=== PATIENT | male | born 1975 | race Caucasian/White ===

== ENCOUNTER 2017-02-16 11:44 | Emergency (ER) | payer OTHER ==
[2017-02-16 12:02] VITALS: BMI 26.6
[2017-02-16] MEDS ORDERED: Sodium Chloride 0.9% 1,000 ML IV STA (12:13)
[2017-02-16] MEDS ORDERED: DiphenhydrAMINE 50 mg/ml Inj IVP STA (12:13)
--- NOTE | 2017-02-16 12:17 | ED PDOC ---
Arrival/HPI - General Chief Complaint: Headache Time Seen by Provider: 02/16/17 12:02 Historian: Patient, Family - History of Present Illness Narrative History of Present Illness (Text): 02/16/17 12:14 41 year old male who denies past medical history presents to the emergency department with intermittent headaches and diarrhea for the" past few weeks". Denies nausea/vomiting. pt is poor historian, info obtained via son as transator bedside. No other complaints at this time. Time/Duration: > week Symptom Onset: Gradual Symptom Course: Intermittent Modifying Factors (Text): None Associated Symptoms (Text): None Past Medical History - Provider Review Nursing Documentation Reviewed: Yes - Psychiatric Hx Substance Use: No Family/Social History - Physician Review Nursing Documentation Reviewed: Yes Family/Social History: Unknown Family HX Smoking Status: Heavy Smoker > 10 Cigarettes Daily Hx Alcohol Use: No Hx Substance Use: No Allergies/Home Meds Allergies/Adverse Reactions: Allergies No Known Allergies Allergy (Verified 02/16/17 12:01) Review of Systems - Physician Review All systems were reviewed & negative as marked: Yes - Review of Systems Cardiovascular: absent: Chest Pain Gastrointestinal: Diarrhea. absent: Nausea, Vomiting Neurological: Headache Physical Exam Vital Signs Reviewed: Yes Vital Signs Temp Pulse Resp BP Pulse Ox 02/16/17 12:02 98 F 78 16 119/72 96 Temperature: Afebrile Blood Pressure: Normal Pulse: Regular Respiratory Rate: Normal Appearance: Positive for: Well-Appearing, Non-Toxic, Comfortable Pain Distress: None Mental Status: Positive for: Alert and Oriented X 3 - Systems Exam Head: Present: Atraumatic, Normocephalic Pupils: Present: PERRL Extroacular Muscles: Present: EOMI Conjunctiva: Present: Normal Mouth: Present: Moist Mucous Membranes Neck: Present: Normal Range of Motion Respiratory/Chest: Present: Clear to Auscultation, Good Air Exchange. No: Respiratory Distress, Accessory Muscle Use Cardiovascular: Present: Regular Rate and Rhythm, Normal S1, S2. No: Murmurs Abdomen: Present: Tenderness (Mild nonfocal tenderness), Normal Bowel Sounds. No: Distention, Peritoneal Signs Back: Present: Normal Inspection Upper Extremity: Present: Normal Inspection. No: Cyanosis, Edema Lower Extremity: Present: Normal Inspection. No: Edema Neurological: Present: GCS=15, CN II-XII Intact, Speech Normal, Motor Func Grossly Intact, Normal Sensory Function, Normal Cerebellar Funct, Norm Deep Tendon Reflexes, Gait Normal Skin: Present: Warm, Dry, Normal Color. No: Rashes Psychiatric: Present: Alert, Oriented x 3, Normal Insight, Normal Concentration Medical Decision Making ED Course and Treatment: Impression: 41 year old male who denies past medical history presents to the emergency department with intermittent headaches and diarrhea for " a while" Differential Diagnosis include but are not limited to: Headache, nonspecific abdominal pain Plan: -- Benadryl, Reglan -- Labs -- Reassess and disposition Progress Notes: PROCEDURE: CT HEAD WITHOUT CONTRAST. Project Superintendent : Rogers Jiméenz MD IMPRESSION: No acute finding PROCEDURE: CT Abdomen/Pelvis Project Superintendent : Rogers Jiménez MD IMPRESSION: No acute findings 02/16/17 14:31 inital imaging neg, but pt reports persistent symptoms. ct imaging added. both neg. pt now reports feeling improved. abd soft no ttp. advise outpt f/u and return precautions 02/16/17 14:41 - Lab Interpretations Lab Results: 02/16/17 13:10 02/16/17 13:10 Lab Results 02/16/17 13:10: WBC 4.7 D, RBC 4.88, Hgb 15.6, Hct 42.5, MCV 87.1, MCH 32.0, MCHC 36.7, RDW 12.7, Plt Count 247, MPV 10.6, Gran % 39.1 L, Lymph % (Auto) 47.8 H, Morrill % (Auto) 10.2 H, Eos % (Auto) 2.3, Baso % (Auto) 0.6, Gran # 1.83, Lymph # 2.2, Morrill # 0.5, Eos # 0.1, Baso # 0.03, PT 11.2, INR 1.04, APTT 25.5, Sodium 139, Potassium 3.8, Chloride 100, Carbon Dioxide 31, Anion Gap 12, BUN 19 , Creatinine 0.7, Est GFR ( Amer) > 60, Est GFR (Non-Af Amer) > 60, Random Glucose 93, Calcium 9.6, Total Bilirubin 0.5, AST 45, ALT 76 H, Alkaline Phosphatase 49, Total Protein 7.8, Albumin 4.3, Globulin 3.5, Albumin/Globulin Ratio 1.2, Lipase 131 - RAD Interpretation Radiology Orders: 02/16/17 13:47 ABD & PELVIS IV CONTRAST ONLY [CT] Stat HEAD W/O CONTRAST [CT] Stat - Medication Orders Current Medication Orders: Discontinued Medications Diphenhydramine HCl (Benadryl) 25 mg IVP STAT STA Stop: 02/16/17 12:14 Last Admin: 02/16/17 13:00 Dose: 25 MG IVP Administration Document 02/16/17 13:00 BELLA (Rec: 02/16/17 13:08 [id number]) Charges for Administration # of IVP Administrations 1 Sodium Chloride (Sodium Chloride 0.9%) 1,000 mls @ 1,000 mls/hr IV .Q1H STA Stop: 02/16/17 13:12 Last Admin: 02/16/17 13:06 Dose: 1,000 MLS/HR eMAR Start Stop Document 02/16/17 13:06 BELLA (Rec: 02/16/17 13:06 [id number]) Intravenous Solution Start Date 02/16/17 Start Time 13:00 End Date 02/16/17 End time 14:00 Total Infusion Time 60 Iohexol (Omnipaque 350 100 Ml) Confirm Administered Dose 350 mg .ROUTE .STK-MED ONE Stop: 02/16/17 13:54 Ketorolac Tromethamine (Toradol) 30 mg IVP STAT STA Stop: 02/16/17 14:28 Metoclopramide HCl (Reglan) 10 mg IVP STAT STA Stop: 02/16/17 12:14 Last Admin: 02/16/17 13:07 Dose: 10 MG IVP Administration Document 02/16/17 13:07 BLELA (Rec: 02/16/17 13:07 [id number]) Charges for Administration # of IVP Administrations 1 - Scribe Statement The provider has reviewed the documentation as recorded by the Yolanda Randall Provider Scribe Attestation: All medical record entries made by the Scribe were at my direction and personally dictated by me. I have reviewed the chart and agree that the record accurately reflects my personal performance of the history, physical exam, medical decision making, and the department course for this patient. I have also personally directed, reviewed, and agree with the discharge instructions and disposition. Disposition/Present on Arrival - Present on Arrival Any Indicators Present on Arrival: No History of DVT/PE: No History of Uncontrolled Diabetes: No Urinary Catheter: No History of Decub. Ulcer: No History Surgical Site Infection Following: None - Disposition Have Diagnosis and Disposition been Completed?: Yes Diagnosis: Headache, Abdominal pain Disposition: HOME/ ROUTINE Disposition Time: 14:33 Patient Problems: Current Active Problems Problem Status Diagnosed Abdominal pain Acute Headache Acute Condition: STABLE Discharge Instructions (ExitCare): Acute Abdominal Pain (ED), Acute Headache ( ED) Additional Instructions: please follow up with clinic and specialists. return to er with worsening symptoms or concerns. Prescriptions: Acetaminophen/Butalbital/Caf [Fioricet] 1 tab PO Q8 PRN #20 tab PRN Reason: Headache Referrals: PCP,NO [Primary Care Provider] - Follow up with primary [facility] at [facility] [place] [Outside] - Follow up with primary [facility] [Outside] - Follow up with primary Jonathan Hopson MD [Staff Provider] - Follow up with primary Be Frey MD [Staff Provider] - Follow up with primary
[2017-02-16 13:28] LABS: ADD MANUAL DIFF? NO
[2017-02-16 13:33] LABS: BASO # 0.03 K/mm3 (0.0-2.0); BASO % 0.6 % (0.0-3.0); EOS # 0.1 (0.0-0.7); EOS % 2.3 % (1.5-5.0); GRAN # 1.83 (1.4-6.5); GRAN % 39.1 % (50.0-68.0); HEMATOCRIT 42.5 % (42.0-52.0); LYMPH # 2.2 (1.2-3.4); LYMPH % 47.8 % (22.0-35.0); MEAN CELL VOLUME 87.1 fL (80.0-105.0); MEAN CORPUSCULAR HGB CONC 36.7 g/dl (31.0-37.0); MEAN PLATELET VOLUME 10.6 fl (7.0-11.0); MONO # 0.5 (0.1-0.6); MONO % 10.2 % (1.0-6.0); PLATELET COUNT 247 10^3/uL (120.0-450.0); RED CELL DISTRIBUTION WIDTH 12.7 % (11.5-14.5); WHITE BLOOD COUNT 4.7 10^3/ul (4.5-11.0)
[2017-02-16 13:43] LABS: ALB/GLOB RATIO 1.2 (1.1-1.8); ALKALINE PHOSPHATASE 49 U/L (38-133); ALT/SGPT 76 U/L (7-56); AST/SGOT 45 U/L (15-59); BILIRUBIN,TOTAL 0.5 mg/dL (0.2-1.3); BLOOD UREA NITROGEN 19 mg/dL (7-21); CALCIUM 9.6 mg/dL (8.4-10.5); CARBON DIOXIDE 31 mmol/L (21-33); CHLORIDE 100 mmol/L (98-107); GFR AFRICAN-AMERICAN > 60; GLUCOSE,RANDOM 93 mg/dL (70-110); INR 1.04 (0.93-1.08); LIPASE 131 U/L (23-300); PARTIAL THROMBOPLASTIN TIME 25.5 Seconds (23.7-30.8); POTASSIUM 3.8 mmol/L (3.6-5.0); SODIUM 139 mmol/L (132-148); TOTAL PROTEIN 7.8 g/dL (5.8-8.3)
[2017-02-16] MEDS ORDERED: Iohexol 350 MG/100 ML VIAL ONE (13:53)
--- NOTE | 2017-02-16 14:26 | CT ---
PROCEDURE: CT HEAD WITHOUT CONTRAST. HISTORY: pina COMPARISON: None available. TECHNIQUE: Axial computed tomography images were obtained through the head/brain without intravenous contrast. Radiation dose: Total exam DLP = 722 mGy-cm. This CT exam was performed using one or more of the following dose reduction techniques: Automated exposure control, adjustment of the mA and/or kV according to patient size, and/or use of iterative reconstruction technique. FINDINGS: HEMORRHAGE: No intracranial hemorrhage. BRAIN: No mass effect or edema. No atrophy or chronic microvascular ischemic changes. VENTRICLES: Unremarkable. No hydrocephalus. CALVARIUM: Unremarkable. PARANASAL SINUSES: Unremarkable as visualized. No significant inflammatory changes. MASTOID AIR CELLS: Unremarkable as visualized. No inflammatory changes. OTHER FINDINGS: None. IMPRESSION: No acute finding
--- NOTE | 2017-02-16 14:31 | CT ---
PROCEDURE: CT Abdomen and Pelvis with contrast HISTORY: abd pain and diarrhea COMPARISON: None. TECHNIQUE: Contrast dose: 100 cc of Omni 350 Radiation dose: Total exam DLP = 476 mGy-cm. This CT exam was performed using one or more of the following dose reduction techniques: Automated exposure control, adjustment of the mA and/or kV according to patient size, and/or use of iterative reconstruction technique. FINDINGS: LOWER THORAX: Unremarkable. LIVER: Unremarkable. No gross lesion or ductal dilatation. GALLBLADDER AND BILE DUCTS: Unremarkable. PANCREAS: Unremarkable. No gross lesion or ductal dilatation. SPLEEN: Unremarkable. ADRENALS: Unremarkable. No mass. KIDNEYS AND URETERS: Unremarkable. No hydronephrosis. No solid mass. VASCULATURE: Unremarkable. No aortic aneurysm. BOWEL: Unremarkable. No obstruction. No gross mural thickening. APPENDIX: Normal appendix. PERITONEUM: Unremarkable. No free fluid. No free air. LYMPH NODES: Unremarkable. No enlarged lymph nodes. BLADDER: Unremarkable. REPRODUCTIVE: Unremarkable. BONES: No acute fracture. OTHER FINDINGS: None. IMPRESSION: No acute findings
[2017-02-16 15:01] VITALS: BP 130/79; PULSE 97; RESP 18; TEMP 97.7; O2SAT 98
== END 2017-02-16 15:00 | disposition home or self-care (01) ==
LOC: ED 11:44
DX: R51 Headache (principal); R10.9 Unspecified abdominal pain
CPT/HCPCS: 70450; 74177; 80053; 83690; 85025; 85610; 85730; 96361; 96374; 96375; 99285; J1200; J1885; J2765; J7040; Q9967

== ENCOUNTER 2017-04-11 17:22 | Emergency (ER) | payer OTHER ==
[2017-04-11 17:23] VITALS: BMI 26.6
[2017-04-11 17:37] VITALS: BP 120/67; PULSE 70; TEMP 98.3
--- NOTE | 2017-04-11 17:43 | ED PDOC ---
Arrival/HPI - General Chief Complaint: Lower Extremity Problem/Injury Time Seen by Provider: 04/11/17 17:32 Historian: Patient - History of Present Illness Narrative History of Present Illness (Text): 04/11/17 17:40 41 y/o male, no significant pmh, nkda, c/o rt. foot heel pain x 2 months with no fall or trauma. Aching pain, admits walking and standing a lot, no numbness or tingling, no palpitation, no chest pain or shortness of breath, no other medical or psychological complaints. Past Medical History - Provider Review Nursing Documentation Reviewed: Yes - Psychiatric Hx Psychophysiologic Disorder: No Hx Substance Use: No Family/Social History - Physician Review Nursing Documentation Reviewed: Yes Family/Social History: Unknown Family HX Smoking Status: Heavy Smoker > 10 Cigarettes Daily Hx Alcohol Use: No Hx Substance Use: No Allergies/Home Meds Allergies/Adverse Reactions: Allergies No Known Allergies Allergy (Verified 04/11/17 17:32) Review of Systems - Review of Systems Constitutional: absent: Fatigue, Fevers Eyes: absent: Vision Changes ENT: absent: Hearing Changes Respiratory: absent: SOB, Cough Cardiovascular: absent: Chest Pain Gastrointestinal: absent: Abdominal Pain, Nausea, Vomiting Musculoskeletal: Arthralgias. absent: Back Pain, Neck Pain, Joint Swelling Skin: absent: Rash, Pruritis, Skin Lesions Neurological: absent: Headache, Dizziness, Focal Weakness Psychiatric: absent: Anxiety, Depression, Suicidal Ideation Physical Exam Vital Signs Reviewed: Yes Vital Signs Temp Pulse Resp BP Pulse Ox 04/11/17 18:24 19 99 04/11/17 17:49 98.3 F 70 16 100 04/11/17 17:33 98.3 F 70 16 120/67 99 Temperature: Afebrile Blood Pressure: Normal Pulse: Regular Respiratory Rate: Normal Appearance: Positive for: Well-Appearing, Non-Toxic Pain Distress: Moderate Mental Status: Positive for: Alert and Oriented X 3 - Systems Exam Head: Present: Atraumatic, Normocephalic Pupils: Present: PERRL Extroacular Muscles: Present: EOMI Conjunctiva: Present: Normal Mouth: Present: Moist Mucous Membranes Neck: Present: Normal Range of Motion Respiratory/Chest: Present: Clear to Auscultation, Good Air Exchange. No: Respiratory Distress, Accessory Muscle Use Cardiovascular: Present: Regular Rate and Rhythm, Normal S1, S2. No: Murmurs Abdomen: Present: Normal Bowel Sounds. No: Tenderness, Distention, Peritoneal Signs Back: Present: Normal Inspection Upper Extremity: Present: Normal Inspection. No: Cyanosis, Edema Lower Extremity: Present: Normal Inspection, NORMAL PULSES, Normal ROM, Neurovascularly Intact, Other (Rt. foot: +ttp on the calcaneal region with no erythematous or the wound, no cellulitis or streaking, no ulcers, FROM without limitations, sensation intact, motor 5/5, +Radial pulse, capillary refill< 2 seconds, neurovascular intact. ). No: Edema, CALF TENDERNESS, Flores's Sign, Deformity Neurological: Present: GCS=15, CN II-XII Intact, Speech Normal Skin: Present: Warm, Dry, Normal Color. No: Rashes Psychiatric: Present: Alert, Oriented x 3, Normal Insight, Normal Concentration Medical Decision Making ED Course and Treatment: 04/11/17 17:43 -toradol IM, hailey wrap, crutches, xray -Discharge home with naproxen, hailey wrap, crutches, avoid excessive walking or standing, avoid wearing flip flops, follow up with your own pmd and sales service professional within 2 days, return to the ER for any new or worsening signs or symptoms. 04/11/17 17:59 -Rt. foot xray show no fracture or dislocation - RAD Interpretation Radiology Orders: 04/11/17 17:39 FOOT RIGHT 3 VIEWS ROUTINE [RAD] Stat no fracture, no significant acute findings. Acupressurist: Radiologist - Medication Orders Current Medication Orders: Discontinued Medications Ketorolac Tromethamine (Toradol) 60 mg IM STAT STA Stop: 04/11/17 17:40 Last Admin: 04/11/17 18:04 Dose: 60 mg - PA / TILE DECORATOR / Resident Statement MD/DO has reviewed & agrees with the documentation as recorded. Disposition/Present on Arrival - Present on Arrival Any Indicators Present on Arrival: No History of DVT/PE: No History of Uncontrolled Diabetes: No Urinary Catheter: No History of Decub. Ulcer: No History Surgical Site Infection Following: None - Disposition Have Diagnosis and Disposition been Completed?: Yes Diagnosis: Plantar fasciitis of right foot, Calcaneal spur, right Disposition: HOME/ ROUTINE Disposition Time: 17:44 Patient Plan: Discharge Condition: GOOD Additional Instructions: Discharge home with naproxen, hailey wrap, crutches, avoid excessive walking or standing, avoid wearing flip flops, follow up with your own pmd and sales service professional within 2 days, return to the ER for any new or worsening signs or symptoms. Prescriptions: Naproxen [Naprosyn] 500 mg PO BID PRN #30 tab PRN Reason: Other Referrals: [facility] at [facility] [place] [Outside] - Follow up with primary Sanford Crabtree DPM [Staff Provider] - Follow up with primary Forms: WORK NOTE
[2017-04-11 18:25] VITALS: RESP 19; O2SAT 99
--- NOTE | 2017-04-12 10:48 | RAD ---
PROCEDURE: Right Foot Radiographs. HISTORY: rt. foot heel pain x 2 months COMPARISON: None. FINDINGS: BONES: Normal. No fracture. JOINTS: Normal. SOFT TISSUES: Normal. OTHER FINDINGS: None. IMPRESSION: No significant or acute findings to account for/ related to the clinical presentation. Concordant results with the preliminary interpretation rendered by the emergency department physician procedure.
== END 2017-04-11 18:24 | disposition home or self-care (01) ==
LOC: ED 17:22
DX: M72.2 Plantar fascial fibromatosis (principal); M77.31 Calcaneal spur, right foot
CPT/HCPCS: 73630; 96372; 99283; J1885